=== PATIENT | female | born 1945 | race Caucasian/White ===

== ENCOUNTER 2019-09-19 14:00 | Outpatient (CLI) | payer MEDICARE, BC ==
--- NOTE | 2019-09-19 14:39 | ULT ---
Exam: Pelvic ultrasound HISTORY: Left lower quadrant pain/tenderness. COMPARISON: None TECHNIQUE: Multiple grayscale and color Doppler images were obtained in a transabdominal and transvag inal pelvic ultrasound. Spectral analysis of the Doppler waveforms of the ovaries were performed. FINDINGS: CERVIX: Grossly within normal limits. UTERUS: Mildly heterogeneous in size without focal mass present. ENDOMETRIUM: 3 mm which is within normal limits for patient's age. No fluid or fluid collection is se en in the endometrial canal. No free fluid is present. RIGHT OVARY: Normal flow, without focal mass. Small in size. LEFT OVARY: Normal flow, without focal mass. Small in size. IMPRESSION: 1. Mild nonspecific heterogeneity of the uterus. The endometrial stripe is normal in thickness for th e patient's age. 2. The ovaries are small in size bilaterally, but demonstrate a normal sonographic appearance for the patient's age.
== END 2019-09-19 14:01 | disposition home or self-care (01) ==
LOC: SCSULT 14:00
PROVIDERS: ATTEND Internal Medicine
DX: R10.32 Left lower quadrant pain (principal); R10.2 Pelvic and perineal pain; R93.89 Abnormal findings on diagnostic imaging of other specified body structures; Q50.39 Other congenital malformation of ovary
CPT/HCPCS: 76856